=== PATIENT | male | born 1995 | race African-American/Black ===

== ENCOUNTER 2017-10-21 05:58 | Inpatient (IN) | payer OTHER ==
[~2017-10-21] VITALS: Ht 152.4 cm; Wt 45.4 kg
[2017-10-21 06:45] VITALS: BP 126/89
[2017-10-21 07:02] LABS: BASOPHILS % (AUTO) 1.3 % (0.0-2.0); EOSINOPHILS % (AUTO) 1.8 % (0.0-3.0); HEMATOCRIT 32.5 % (42.0-52.0); HEMOGLOBIN 10.8 G/DL (14.2-18.0); LYMPHOCYTES % (AUTO) 16.9 % (20.0-45.0); MEAN CORPUSCULAR VOLUME 84 FL (80-99); MONOCYTES % (AUTO) 3.7 % (1.0-10.0); NEUTROPHILS % (AUTO) 76.2 % (45.0-75.0); PLATELET COUNT 447 K/UL (150-450); RED BLOOD COUNT 3.86 M/UL (4.70-6.10); RED CELL DISTRIBUTION WIDTH 14.3 % (11.6-14.8); WHITE BLOOD COUNT 12.1 K/UL (4.8-10.8)
[2017-10-21 07:16] LABS: ANION GAP 6 mmol/L (5-15); BLOOD UREA NITROGEN 13 mg/dL (7-18); CALCIUM 8.5 MG/DL (8.5-10.1); CARBON DIOXIDE 28 MMOL/L (21-32); CHLORIDE 104 MMOL/L (98-107); POTASSIUM 3.5 MMOL/L (3.5-5.1); SODIUM 138 MMOL/L (136-145)
[2017-10-21 07:21] LABS: ALANINE AMINOTRANSFERASE 38 U/L (12-78); ALBUMIN 3.1 G/DL (3.4-5.0); ALBUMIN/GLOBULIN RATIO 0.6 (1.0-2.7); ALKALINE PHOSPHATASE 88 U/L (46-116); ASPARTATE AMINO TRANSFERASE 15 U/L (15-37); BILIRUBIN,TOTAL 0.6 MG/DL (0.2-1.0)
[2017-10-21 07:45] VITALS: BP 124/72
--- NOTE | 2017-10-21 07:59 | Diagnostic Imaging Report ---
EXAM: XR Left Foot Complete, 3 or More Views CLINICAL HISTORY: SWELL TECHNIQUE: Frontal, lateral and oblique views of the left foot. COMPARISON: No relevant prior studies available. FINDINGS: Severe generalized osteopenia. No radiographic evidence of acute fracture or dislocation. Arthritic changes in the midfoot. Significant soft tissue swelling. IMPRESSION: Severe generalized osteopenia. Generalized soft tissue swelling. No radiographic evidence of acute fracture. Arthritic changes in the left midfoot.
--- NOTE | 2017-10-21 08:57 | Emergency Room Report ---
History of Present Illness General Chief Complaint: Behavioral Complaint Source: Patient Present Illness HPI 22-year-old male presents ED for evaluation. Patient has multiple complaints. States that he can no longer take care of himself. Was living at home with his family and they are unable to care for him. Patient states he has severe scoliosis, has extensive psychiatric history. Patient also notes pain and swelling to his left foot. States he has had problems with this foot for many years now but states it is worse. Denies fevers or chills. Denies chest pain or shortness of breath. Denies hearing voices. Denies any suicidal homicidal ideation. No other aggravating relieving factors. Denies any other associated symptoms Allergies: Coded Allergies: LATEX (Verified Allergy, Unknown, 10/21/17) Patient History Past Medical History: psych hx, other - scolioisis Past Surgical History: none Pertinent Family History: none Social History: Denies: smoking, alcohol use, drug use Immunizations: UTD Reviewed Nursing Documentation: PMH: Agreed; PSxH: Agreed Nursing Documentation-PMH Hx Cancer: Yes - Bone Cancer Review of Systems All Other Systems: negative except mentioned in HPI Physical Exam Vital Signs Date Time Temp Pulse Resp B/P (MAP) Pulse Ox O2 Delivery O2 Flow Rate FiO2 10/21/17 05:52 98.1 120 18 128/89 98 Room Air 98.1 Sp02 EP Interpretation: reviewed, normal General Appearance: no apparent distress, alert, GCS 15, non-toxic, thin Head: normocephalic Eyes: bilateral eye normal inspection, bilateral eye PERRL ENT: normal ENT inspection Neck: normal inspection Respiratory: chest non-tender, lungs clear, normal breath sounds, speaking full sentences Cardiovascular #1: regular rate, rhythm, no edema Gastrointestinal: normal bowel sounds, non tender, soft, non-distended, no guarding, no rebound Rectal: deferred Genitourinary: no CVA tenderness, other Musculoskeletal: swelling - L foot swelling. erythema. open wound to L foot. no discharge Neurologic: alert, oriented x3, responsive, motor strength/tone normal, sensory intact, speech normal Psychiatric: no suicidal/homicidal ideation, no delusions, depressed affect, anxious Skin: normal inspection Lymphatic: normal inspection Medical Decision Making Diagnostic Impression: Primary Impression: Cellulitis of left foot Additional Impression: Gravely disabled ER Course Hospital Course 22-year-old male presents with generalized weakness, inability to care for self. Swelling and pain to the left foot Differential diagnoses include: cellulitis, abscess, osteomyelitis Clinical course Patient placed on stretcher. After initial history and physical I ordered labs , blood Cx, UA, IVFs. xrays of L foot labs reviewed - leukocytosis, Hb/Hct stable, no electrolyte abnormalities. Xray shows significant osteopenia. Marked soft tissue swelling. wound culture obtained antibiotics given. Patient does not have a support network to assist him with all of his comorbidities. Patient states there is increased swelling to the foot. While there is an extensive psychiatric history patient is not currently danger to himself or others. I believe patient would benefit from admission with IV antibiotics, psychiatric evaluation, possible placement upon discharge Case discussed with Dr Melchor and he agreed to accept the patient to his service for further care and support Diagnosis - cellulitis of L foot, gravely disable Patient admitted to floor in serious condition Labs Test 10/21/17 06:20 10/21/17 06:24 10/21/17 06:40 Urine Opiates Screen Negative (NEGATIVE) Urine Barbiturates Screen Negative (NEGATIVE) Phencyclidine (PCP) Screen Negative (NEGATIVE) Urine Amphetamines Screen Negative (NEGATIVE) Urine Benzodiazepines Screen Negative (NEGATIVE) Urine Cocaine Screen Negative (NEGATIVE) Urine Marijuana (THC) Screen Positive (NEGATIVE) White Blood Count 12.1 K/UL (4.8-10.8) Red Blood Count 3.86 M/UL (4.70-6.10) Hemoglobin 10.8 G/DL (14.2-18.0) Hematocrit 32.5 % (42.0-52.0) Mean Corpuscular Volume 84 FL (80-99) Mean Corpuscular Hemoglobin 28.1 PG (27.0-31.0) Mean Corpuscular Hemoglobin Concent 33.3 G/DL (32.0-36.0) Red Cell Distribution Width 14.3 % (11.6-14.8) Platelet Count 447 K/UL (150-450) Mean Platelet Volume 5.6 FL (6.5-10.1) Neutrophils (%) (Auto) 76.2 % (45.0-75.0) Lymphocytes (%) (Auto) 16.9 % (20.0-45.0) Monocytes (%) (Auto) 3.7 % (1.0-10.0) Eosinophils (%) (Auto) 1.8 % (0.0-3.0) Basophils (%) (Auto) 1.3 % (0.0-2.0) Sodium Level 138 MMOL/L (136-145) Potassium Level 3.5 MMOL/L (3.5-5.1) Chloride Level 104 MMOL/L (98-107) Carbon Dioxide Level 28 MMOL/L (21-32) Anion Gap 6 mmol/L (5-15) Blood Urea Nitrogen 13 mg/dL (7-18) Creatinine 1.0 MG/DL (0.55-1.30) Estimat Glomerular Filtration Rate > 60 mL/min (>60) Glucose Level 133 MG/DL (74-106) Calcium Level 8.5 MG/DL (8.5-10.1) Total Bilirubin 0.6 MG/DL (0.2-1.0) Aspartate Amino Transf (AST/SGOT) 15 U/L (15-37) Alanine Aminotransferase (ALT/SGPT) 38 U/L (12-78) Alkaline Phosphatase 88 U/L (46-116) Total Protein 8.3 G/DL (6.4-8.2) Albumin 3.1 G/DL (3.4-5.0) Globulin 5.2 g/dL Albumin/Globulin Ratio 0.6 (1.0-2.7) Salicylates Level 2.3 ug/mL (2.8-20) Acetaminophen Level < 2 MCG/ML (10-30) Serum Alcohol < 3 mg/dL Lactic Acid Level 1.50 mmol/L (0.4-2.0) Other X-Ray Diagnostic Results Other X-Ray Diagnostic Results : X-Ray ordered: L foot # of Views/Limited Vs Complete: 3 View Indication: Swelling EP Interpretation: Yes Interpretation: no dislocation, no fractures, other - severe arthritis Impression: Other - severe arthritis/soft tissue swelling Electronically Signed by: Electronically signed by Rodger Gan MD Last Vital Signs Date Time Temp Pulse Resp B/P (MAP) Pulse Ox O2 Delivery O2 Flow Rate FiO2 10/21/17 07:45 97.6 84 18 124/72 98 Room Air 97.6 Status: improved Disposition: ADMITTED INPATIENT Condition: Serious Referrals: SAM ZAYAS,REFERRING (PCP) Rodger Gan MD Oct 21, 2017 08:57
[2017-10-21 10:54] VITALS: BP 126/74
[2017-10-21] MEDS ORDERED: Nitroglycerin Subl 0.4mg tab SL PRN (11:28)
[2017-10-21] MEDS ORDERED: Miralax 17gm pkt ORAL PRN (11:29)
[2017-10-21] MEDS ORDERED: Albuterol/Ipratropium 3ml neb HHN PRN (11:30)
[2017-10-21] MEDS ORDERED: Morphine Sulfate 4mg/ml Inj IVP ONE (11:45)
[2017-10-21 12:00] VITALS: BP 139/98
[2017-10-21] MEDS: Cefepime HCl 2 GM in D5W 110 ML IV SCH ×2 (14:13→23:53)
[2017-10-21] MEDS: Vancomycin 500mg/D5W 110ml IVPB SCH ×2 (14:15)
[2017-10-21] MEDS: Morphine Sulfate 2mg/ml Inj IVP PRN (18:27)
[2017-10-21 20:00] VITALS: BP 110/78
[2017-10-21] MEDS: Heparin 5000 units/ml inj SUBQ SCH (20:27)
[2017-10-22] VITALS: BP 121/76
[2017-10-22] MEDS ORDERED: Vancomycin 1 GM in D5W 275 ML IV SCH (00:30)
[2017-10-22] MEDS: Vancomycin 500mg/D5W 110ml IVPB SCH ×4 (00:41→15:10)
[2017-10-22 04:34] VITALS: BP 129/80
[2017-10-22] MEDS: Morphine Sulfate 2mg/ml Inj IVP PRN ×2 (06:08→10:18)
[2017-10-22 08:05] VITALS: BP 139/102
[2017-10-22 09:43] LABS: EOSINOPHILS % (AUTO) 5.3 % (0.0-3.0); HEMATOCRIT 34.2 % (42.0-52.0); HEMOGLOBIN 11.4 G/DL (14.2-18.0); LYMPHOCYTES % (AUTO) 22.6 % (20.0-45.0); MEAN CORPUSCULAR VOLUME 83 FL (80-99); MONOCYTES % (AUTO) 9.7 % (1.0-10.0); NEUTROPHILS % (AUTO) 61.5 % (45.0-75.0); PLATELET COUNT 459 K/UL (150-450); RED BLOOD COUNT 4.11 M/UL (4.70-6.10); WHITE BLOOD COUNT 6.3 K/UL (4.8-10.8)
[2017-10-22] MEDS: Heparin 5000 units/ml inj SUBQ SCH ×2 (10:18→20:12)
[2017-10-22 10:39] LABS: ALANINE AMINOTRANSFERASE 30 U/L (12-78); ALBUMIN 2.6 G/DL (3.4-5.0); ALBUMIN/GLOBULIN RATIO 0.5 (1.0-2.7); ALKALINE PHOSPHATASE 69 U/L (46-116); ANION GAP 10 mmol/L (5-15); ASPARTATE AMINO TRANSFERASE 18 U/L (15-37); BILIRUBIN,TOTAL 0.5 MG/DL (0.2-1.0); BLOOD UREA NITROGEN 8 mg/dL (7-18); CALCIUM 8.5 MG/DL (8.5-10.1); CARBON DIOXIDE 26 MMOL/L (21-32); CHLORIDE 104 MMOL/L (98-107); CREATININE 0.8 MG/DL (0.55-1.30); SODIUM 140 MMOL/L (136-145)
[2017-10-22 12:00] VITALS: BP 129/61
[2017-10-22] MEDS: Cefepime HCl 2 GM in D5W 110 ML IV SCH (12:49)
--- NOTE | 2017-10-22 13:05 | Consultation ---
History of Present Illness General Date patient seen: Oct 22, 2017 Chief Complaint: Behavioral Complaint Present Illness HPI 22-year-old male with hx of Spina Bifida, psychosis, presented to ED for evaluation of increased weakness and inability to walk. Pt was living at home with his family and they are unable to care for him. Denies fevers or chills. Denies chest pain or shortness of breath. Denies hearing voices. Pt is admitted for progressive weakness and placement. Allergies: Coded Allergies: LATEX (Verified Allergy, Unknown, 10/21/17) Patient History Healthcare decision maker Resuscitation status Full Code Advanced Directive on File Past Medical/Surgical History Past Medical/Surgical History: (1) Scoliosis (2) Spina bifida Review of Systems All Other Systems: negative except mentioned in HPI Physical Exam General Appearance: WD/WN Lines, tubes and drains: peripheral HEENT: normocephalic, atraumatic Neck: non-tender, normal alignment Respiratory/Chest: chest wall non-tender, lungs clear Breasts: no masses Cardiovascular/Chest: normal peripheral pulses Abdomen: normal bowel sounds, non tender Genitourinary/Rectal: normal genital exam, normal rectal exam Extremities: normal range of motion Skin Exam: normal pigmentation Neurologic: low vision therapist II-XII grossly normal Last 24 Hour Vital Signs Date Time Temp Pulse Resp B/P (MAP) Pulse Ox O2 Delivery O2 Flow Rate FiO2 10/22/17 12:00 97.5 99 16 129/61 (83) 100 97.5 10/22/17 10:48 97.9 10/22/17 10:18 97.9 10/22/17 08:30 Room Air 10/22/17 08:05 97.7 92 16 139/102 (114) 100 97.7 10/22/17 04:34 97.9 92 20 129/80 (96) 98 97.9 10/22/17 00:00 98.4 97 20 121/76 (91) 99 98.4 10/21/17 21:00 Room Air 10/21/17 20:45 81 18 Room Air 10/21/17 20:00 98.2 105 19 110/78 (89) 100 98.2 10/21/17 18:27 98.0 10/21/17 13:50 98.0 10/21/17 13:20 98.0 Intake and Output 10/21/17 10/22/17 19:00 07:00 Intake Total 220 ml Balance 220 ml Intake IV Total 220 ml # Voids 1 Laboratory Tests Test 10/22/17 09:20 White Blood Count 6.3 K/UL (4.8-10.8) Red Blood Count 4.11 M/UL (4.70-6.10) L Hemoglobin 11.4 G/DL (14.2-18.0) L Hematocrit 34.2 % (42.0-52.0) L Mean Corpuscular Volume 83 FL (80-99) Mean Corpuscular Hemoglobin 27.8 PG (27.0-31.0) Mean Corpuscular Hemoglobin Concent 33.4 G/DL (32.0-36.0) Red Cell Distribution Width 14.0 % (11.6-14.8) Platelet Count 459 K/UL (150-450) H Mean Platelet Volume 5.7 FL (6.5-10.1) L Neutrophils (%) (Auto) 61.5 % (45.0-75.0) Lymphocytes (%) (Auto) 22.6 % (20.0-45.0) Monocytes (%) (Auto) 9.7 % (1.0-10.0) Eosinophils (%) (Auto) 5.3 % (0.0-3.0) H Basophils (%) (Auto) 1.0 % (0.0-2.0) Sodium Level 140 MMOL/L (136-145) Potassium Level 4.0 MMOL/L (3.5-5.1) Chloride Level 104 MMOL/L (98-107) Carbon Dioxide Level 26 MMOL/L (21-32) Anion Gap 10 mmol/L (5-15) Blood Urea Nitrogen 8 mg/dL (7-18) Creatinine 0.8 MG/DL (0.55-1.30) Estimat Glomerular Filtration Rate > 60 mL/min (>60) Glucose Level 103 MG/DL (74-106) Calcium Level 8.5 MG/DL (8.5-10.1) Total Bilirubin 0.5 MG/DL (0.2-1.0) Aspartate Amino Transf (AST/SGOT) 18 U/L (15-37) Alanine Aminotransferase (ALT/SGPT) 30 U/L (12-78) Alkaline Phosphatase 69 U/L (46-116) Total Protein 7.4 G/DL (6.4-8.2) Albumin 2.6 G/DL (3.4-5.0) L Globulin 4.8 g/dL Albumin/Globulin Ratio 0.5 (1.0-2.7) L Height (Feet): 5 Weight (Pounds): 100 Medications Current Medications Medications (Trade) Dose Ordered Sig/Lefty Route PRN Reason Start Time Stop Time Status Last Admin Dose Admin Acetaminophen (Tylenol) 650 mg Q4H PRN ORAL fever 10/21/17 11:29 11/20/17 11:28 Albuterol/ Ipratropium (Albuterol/ Ipratropium) 3 ml Q4H PRN HHN Shortness of Breath 10/21/17 11:30 10/26/17 11:29 Cefepime HCl 2 gm/ Dextrose 110 ml @ 220 mls/hr Q12H IV 10/21/17 12:30 10/28/17 12:29 10/22/17 12:49 Dextrose (Dextrose 50%) 25 ml STAT PRN IV Hypoglycemia 10/21/17 11:28 11/20/17 11:27 Dextrose (Dextrose 50%) 50 ml STAT PRN IV Hypoglycemia 10/21/17 11:28 11/20/17 11:27 Heparin Sodium (Porcine) (Heparin 5000 units/ml) 5,000 units EVERY 12 HOURS SUBQ 10/21/17 21:00 11/20/17 20:59 10/22/17 10:18 Morphine Sulfate (Morphine Sulfate) 2 mg Q4H PRN IVP Moderate Pain (Pain Scale 4-6) 10/21/17 11:33 10/28/17 11:32 10/22/17 10:18 Nitroglycerin (Ntg) 0.4 mg Q5MIN X 3 DOSES PRN SL Prn Chest Pain 10/21/17 11:28 11/20/17 11:27 Ondansetron HCl (Zofran) 4 mg Q6H PRN IVP Nausea & Vomiting 10/21/17 11:29 11/20/17 11:28 Polyethylene Glycol (Miralax) 17 gm DAILYPRN PRN ORAL Constipation 10/21/17 11:29 11/20/17 11:28 Temazepam (Restoril) 15 mg HSPRN PRN ORAL Insomnia 10/21/17 21:00 10/28/17 20:59 Vancomycin HCl (Vanco rx to dose) 1 ea DAILY PRN MISC PER RX 10/21/17 11:45 11/20/17 11:44 Vancomycin HCl 500 mg/Dextrose 110 ml @ 110 mls/hr Q12H IVPB 10/21/17 13:00 10/26/17 12:59 10/22/17 00:41 Assessment/Plan Problem List: (1) Cellulitis of left foot ICD Codes: L03.116 - Cellulitis of left lower limb SNOMED: 329433428 (2) Inability to ambulate due to ankle or foot ICD Codes: R26.2 - Difficulty in walking, not elsewhere classified SNOMED: 988969862, 444064772 (3) Scoliosis ICD Codes: M41.9 - Scoliosis, unspecified SNOMED: 921543516 (4) Spina bifida ICD Codes: Q05.9 - Spina bifida, unspecified SNOMED: 59620504 Assessment/Plan pt/ot iv abx for cellulitis social service consult check electrolytes will need placement Ricky Sanz MD Oct 22, 2017 13:04
--- NOTE | 2017-10-22 13:16 | Consultation ---
History of Present Illness General Date patient seen: Oct 22, 2017 Chief Complaint: Behavioral Complaint Present Illness HPI 22 y/o M with hx of Spina Bifida, severe scoliosis, psychosis presented to ED on 10/21 with increasing weakness and inability to walk; family unable to care of him at home. Also noted pain and swelling on L foot Denies f/c, CP, SOB Allergies: Coded Allergies: LATEX (Verified Allergy, Unknown, 10/21/17) Patient History Healthcare decision maker Resuscitation status Full Code Advanced Directive on File Patient History Narrative Pmhx: as above Shx: Denies: smoking, alcohol use, drug use Fhx: non contributory Review of Systems All Other Systems: negative except mentioned in HPI Physical Exam Physical Exam Narrative General Appearance: WD/WN Lines, tubes and drains: peripheral HEENT: normocephalic, atraumatic Neck: non-tender, normal alignment Respiratory/Chest: chest wall non-tender, lungs clear Cardiovascular/Chest: normal peripheral pulses Abdomen: normal bowel sounds, non tender Extremities: normal range of motion Skin Exam: L foot with mild erythema, swelling and TTP and superficial uler on plantar aspect of foot, no driange, no obviously infected . Last 24 Hour Vital Signs Date Time Temp Pulse Resp B/P (MAP) Pulse Ox O2 Delivery O2 Flow Rate FiO2 10/22/17 12:00 97.5 99 16 129/61 (83) 100 97.5 10/22/17 10:48 97.9 10/22/17 10:18 97.9 10/22/17 08:30 Room Air 10/22/17 08:05 97.7 92 16 139/102 (114) 100 97.7 10/22/17 04:34 97.9 92 20 129/80 (96) 98 97.9 10/22/17 00:00 98.4 97 20 121/76 (91) 99 98.4 10/21/17 21:00 Room Air 10/21/17 20:45 81 18 Room Air 10/21/17 20:00 98.2 105 19 110/78 (89) 100 98.2 10/21/17 18:27 98.0 10/21/17 13:50 98.0 10/21/17 13:20 98.0 Intake and Output 10/21/17 10/22/17 19:00 07:00 Intake Total 220 ml Balance 220 ml Intake IV Total 220 ml # Voids 1 Laboratory Tests Test 10/22/17 09:20 White Blood Count 6.3 K/UL (4.8-10.8) Red Blood Count 4.11 M/UL (4.70-6.10) L Hemoglobin 11.4 G/DL (14.2-18.0) L Hematocrit 34.2 % (42.0-52.0) L Mean Corpuscular Volume 83 FL (80-99) Mean Corpuscular Hemoglobin 27.8 PG (27.0-31.0) Mean Corpuscular Hemoglobin Concent 33.4 G/DL (32.0-36.0) Red Cell Distribution Width 14.0 % (11.6-14.8) Platelet Count 459 K/UL (150-450) H Mean Platelet Volume 5.7 FL (6.5-10.1) L Neutrophils (%) (Auto) 61.5 % (45.0-75.0) Lymphocytes (%) (Auto) 22.6 % (20.0-45.0) Monocytes (%) (Auto) 9.7 % (1.0-10.0) Eosinophils (%) (Auto) 5.3 % (0.0-3.0) H Basophils (%) (Auto) 1.0 % (0.0-2.0) Sodium Level 140 MMOL/L (136-145) Potassium Level 4.0 MMOL/L (3.5-5.1) Chloride Level 104 MMOL/L (98-107) Carbon Dioxide Level 26 MMOL/L (21-32) Anion Gap 10 mmol/L (5-15) Blood Urea Nitrogen 8 mg/dL (7-18) Creatinine 0.8 MG/DL (0.55-1.30) Estimat Glomerular Filtration Rate > 60 mL/min (>60) Glucose Level 103 MG/DL (74-106) Calcium Level 8.5 MG/DL (8.5-10.1) Total Bilirubin 0.5 MG/DL (0.2-1.0) Aspartate Amino Transf (AST/SGOT) 18 U/L (15-37) Alanine Aminotransferase (ALT/SGPT) 30 U/L (12-78) Alkaline Phosphatase 69 U/L (46-116) Total Protein 7.4 G/DL (6.4-8.2) Albumin 2.6 G/DL (3.4-5.0) L Globulin 4.8 g/dL Albumin/Globulin Ratio 0.5 (1.0-2.7) L Height (Feet): 5 Weight (Pounds): 100 Medications Current Medications Medications (Trade) Dose Ordered Sig/Lefty Route PRN Reason Start Time Stop Time Status Last Admin Dose Admin Acetaminophen (Tylenol) 650 mg Q4H PRN ORAL fever 10/21/17 11:29 11/20/17 11:28 Albuterol/ Ipratropium (Albuterol/ Ipratropium) 3 ml Q4H PRN HHN Shortness of Breath 10/21/17 11:30 10/26/17 11:29 Cefepime HCl 2 gm/ Dextrose 110 ml @ 220 mls/hr Q12H IV 10/21/17 12:30 10/28/17 12:29 10/22/17 12:49 Dextrose (Dextrose 50%) 25 ml STAT PRN IV Hypoglycemia 10/21/17 11:28 11/20/17 11:27 Dextrose (Dextrose 50%) 50 ml STAT PRN IV Hypoglycemia 10/21/17 11:28 11/20/17 11:27 Heparin Sodium (Porcine) (Heparin 5000 units/ml) 5,000 units EVERY 12 HOURS SUBQ 10/21/17 21:00 11/20/17 20:59 10/22/17 10:18 Morphine Sulfate (Morphine Sulfate) 2 mg Q4H PRN IVP Moderate Pain (Pain Scale 4-6) 10/21/17 11:33 10/28/17 11:32 10/22/17 10:18 Nitroglycerin (Ntg) 0.4 mg Q5MIN X 3 DOSES PRN SL Prn Chest Pain 10/21/17 11:28 11/20/17 11:27 Ondansetron HCl (Zofran) 4 mg Q6H PRN IVP Nausea & Vomiting 10/21/17 11:29 11/20/17 11:28 Polyethylene Glycol (Miralax) 17 gm DAILYPRN PRN ORAL Constipation 10/21/17 11:29 11/20/17 11:28 Temazepam (Restoril) 15 mg HSPRN PRN ORAL Insomnia 10/21/17 21:00 10/28/17 20:59 Vancomycin HCl (Vanco rx to dose) 1 ea DAILY PRN MISC PER RX 10/21/17 11:45 11/20/17 11:44 Vancomycin HCl 500 mg/Dextrose 110 ml @ 110 mls/hr Q12H IVPB 10/21/17 13:00 10/26/17 12:59 10/22/17 00:41 Assessment/Plan Assessment/Plan Abx: /IV Vanco 10/21- Cefepime 10/21- Assessment: L foot cellulitis and superficial ulcer (appears non infected) -wound cx S.aureus Afebrile Mild leukocytosis, resolved Spina Bifida severe scoliosis psychosis Plan: -Continue IV Vancomcyin pending S.aureus sensi and switch Cefepime to Ancef for cellulitis/strep coverage -f/u cx -Monitor CBC/CMP, temperatures -wound care per hosp protocol -PT/OT Thank you for this consultation. Will continue to follow along with you. Discussed with Alice Amaya M.D. Oct 22, 2017 13:16
[2017-10-22 16:00] VITALS: BP 123/77
--- NOTE | 2017-10-22 16:15 | History and Physical Report ---
DATE OF ADMISSION: 10/22/2017 TIME: 11 a.m. CONSULTANTS: 1. Daniel Helms M.D. 2. Ricky Sanz M.D. 3. Damon Garcia D.P.M. 4. Soto Chavez M.D. CHIEF COMPLAINT: Left foot cellulitis, scoliosis, and testicular pain. BRIEF HISTORY: This is a 22-year-old male, who lives at home with family with history of severe scoliosis developing a left foot cellulitis and not eating well. Currently, transferred to [facility], diagnosed with the above, and admitted to medical floor for further treatment. Currently, calm in bed. No complaint. No chest pain. No shortness of breath. No nausea, vomiting, or diarrhea. PAST MEDICAL HISTORY: Includes fibromyalgia, scoliosis, hypertension, and testicular pain. PAST SURGICAL HISTORY: Left leg at 13 years old. MEDICATIONS: Restoril, temazepam, vancomycin, cefepime, morphine, albuterol, Zofran, Tylenol, and nitroglycerin. ALLERGIES: Latex and the patient claims penicillin. SOCIAL HISTORY: Positive smoke. Positive alcohol. No intravenous drug abuse. FAMILY HISTORY: Noncontributory. PHYSICAL EXAMINATION: GENERAL: Calm in bed, oriented x3, in no acute distress. VITAL SIGNS: Temperature is 97 degrees, pulse 92, respirations 16, and blood pressure 129/80 then 139/102. CARDIOVASCULAR: No murmurs. LUNGS: Distant and clear. ABDOMEN: Bowel sounds positive. Nontender. Nondistended. EXTREMITIES: No cyanosis, clubbing, or edema. Left foot base slightly disheveled and whitish scabbed lesion. Also, severe scoliosis deformity noted with the leg and arm deformity as well. NEUROLOGIC: The patient moves all extremities, but slightly weak. LABORATORY AND DIAGNOSTIC DATA: Labs, at this time, show white count initially was 12, now at 6.3, H and H are 11 and 34, and platelets 459,000. BMP shows albumin 2.6, otherwise BMP is normal. Urine toxicology is positive for marijuana. ASSESSMENT: 1. Cellulitis of the left foot. 2. Failure to thrive. 3. Anemia. 4. Scoliosis. 5. Fibromyalgia. 6. Hypertension. 7. Testicular pain. PLAN: 1. Wound care. 2. Antibiotics per Infectious Disease. 3. OT, PT, and dietary evaluation. 4. CBC and BMP in the morning. 5. Pain control. 6. Blood pressure control. 7. Resume home medications. 8. We will continue to follow this patient. Rigo Melchor D.O. DR: NIMESH JOB#: [id number] CC:
[2017-10-22 20:00] VITALS: BP 115/81
[2017-10-22] MEDS: ceFAZolin sod 1 GM in D5W 110 ML IVPB SCH (21:30)
[2017-10-23] VITALS: BP 136/90
--- NOTE | 2017-10-23 01:30 | Consultation ---
DATE OF CONSULTATION: 10/22/2017 UROLOGY CONSULTATION CONSULTING PHYSICIAN: Soto Chavez M.D. ATTENDING/CONSULTING PHYSICIAN: Rigo Melchor D.O. CHIEF COMPLAINT/HISTORY OF PRESENT ILLNESS: I was asked by Dr. Melchor to evaluate this unfortunate 22-year-old gentleman regarding history of chronic intermittent scrotal pain which he has felt for years. Briefly, the patient came to the hospital with left foot cellulitis. He has a history of severe scoliosis and family was unable to care for him at home. During the course of this hospitalization, he mentioned a chronic testicular and scrotal pain that he has had for years by his report. There is no preceding history of trauma or infection. The pain comes and goes intermittently. PAST MEDICAL HISTORY: 1. Scoliosis. 2. Fibromyalgia. 3. Hypertension. 4. Orchialgia. PAST SURGICAL HISTORY: Left leg surgery at age 13. MEDICATIONS: Please see the chart for current medications administration details. ALLERGIES: Include latex and penicillin. SOCIAL HISTORY: Notable for tobacco and alcohol use. The patient does not use IV drugs. FAMILY HISTORY: Noncontributory. REVIEW OF SYSTEMS: A 12-system review of systems essentially unremarkable outside of what is described above. PHYSICAL EXAMINATION: GENERAL: The patient is a young gentleman, awake, alert, oriented x4, pleasant, in no obvious distress. HEENT: NC/AT. EOMI. NECK: Supple, but full range of motion. Oropharynx clear. CHEST: Within normal limits. ABDOMEN: Soft, nontender, and nondistended. EXTREMITIES: Warm and well perfused. No cyanosis, clubbing or edema is noted. The left foot is disabled and there is some evidence of cellulitis. BACK: Scoliosis is noted with some deformity. NEUROLOGIC: Grossly nonfocal. GENITOURINARY: Reveals a normal male phallus circumcised. No discharge lesions or curvature. There are bilateral descended testes and cord structures. No masses, tenderness to palpation or other abnormality appreciable. LABORATORY AND DIAGNOSTIC DATA: White blood cell count 6.3 down from 12.1 on admission, hematocrit 34.2, and platelets 459. Sodium 140, potassium 4.0, chloride 104, bicarbonate 26, BUN 8, creatinine 0.8, and glucose 103. LFTs within normal limits. Urine toxicology notable for marijuana. Diagnostic imaging, foot x-ray with osteopenia and soft-tissue swelling. There is no radiographic evidence of fracture. There are arthritic changes in the left mid foot. ASSESSMENT AND PLAN: In summary, the patient is a young man with a history of scoliosis and left leg deformity presenting with cellulitis of the left lower extremity. He has a history of chronic orchialgia of uncertain etiology. Physical exam reveals no abnormalities within the scrotum and no tenderness on exam. Laboratory data is notable for a slightly elevated white blood cell count, which is improved on antibiotics here in the hospital. There is no relevant diagnostic imaging. It appears that the patient may have a little bit of intermittent epididymitis. There is no scrotal or testicular mass, hernia, hydrocele or abscess noted. I reassured him regarding his findings and he was happy to hear that. Thank you for allowing me to participate in the care of this nice young man. Please do not hesitate to contact me with any questions that you may further have regarding his care. I will see him with you as needed. Soto Chavez M.D. DR: OMID JOB#: [id number] CC:
[2017-10-23] MEDS: Vancomycin 500mg/D5W 110ml IVPB SCH ×2 (02:27)
[2017-10-23 04:00] VITALS: BP 124/89
[2017-10-23] MEDS: ceFAZolin sod 1 GM in D5W 110 ML IVPB SCH ×2 (06:31→14:00)
[2017-10-23 08:00] VITALS: BP 122/85
[2017-10-23 09:22] LABS: BASOPHILS % (AUTO) 1.5 % (0.0-2.0); EOSINOPHILS % (AUTO) 2.4 % (0.0-3.0); HEMOGLOBIN 11.6 G/DL (14.2-18.0); LYMPHOCYTES % (AUTO) 12.2 % (20.0-45.0); MEAN CORPUSCULAR VOLUME 83 FL (80-99); MONOCYTES % (AUTO) 7.2 % (1.0-10.0); NEUTROPHILS % (AUTO) 76.6 % (45.0-75.0); PLATELET COUNT 447 K/UL (150-450); RED BLOOD COUNT 4.23 M/UL (4.70-6.10); RED CELL DISTRIBUTION WIDTH 14.1 % (11.6-14.8); WHITE BLOOD COUNT 9.1 K/UL (4.8-10.8)
[2017-10-23] MEDS: Heparin 5000 units/ml inj SUBQ SCH (09:33)
[2017-10-23 09:40] LABS: ANION GAP 7 mmol/L (5-15); BLOOD UREA NITROGEN 7 mg/dL (7-18); CARBON DIOXIDE 28 MMOL/L (21-32); CHLORIDE 103 MMOL/L (98-107); CREATININE 0.6 MG/DL (0.55-1.30); POTASSIUM 3.8 MMOL/L (3.5-5.1); SODIUM 138 MMOL/L (136-145)
[2017-10-23 09:45] LABS: CALCIUM 8.5 MG/DL (8.5-10.1)
[2017-10-23 12:00] VITALS: BP 113/81
--- NOTE | 2017-10-23 12:37 | Pulmonology Progress Note ---
Assessment/Plan Problems: (1) Cellulitis of left foot (2) Inability to ambulate due to ankle or foot (3) Scoliosis (4) Spina bifida Assessment/Plan all reviewed social service note appreciated dc planning symptomatic treatment dvt prophylaxis Subjective ROS Limited/Unobtainable: No Constitutional: Reports: no symptoms HEENT: Repors: no symptoms Respiratory: Reports: no symptoms Allergies: Coded Allergies: LATEX (Verified Allergy, Unknown, 10/21/17) PENICILLINS (Verified Allergy, Unknown, seizures, 10/22/17) tolerates cephalosporins Objective Last 24 Hour Vital Signs Date Time Temp Pulse Resp B/P (MAP) Pulse Ox O2 Delivery O2 Flow Rate FiO2 10/23/17 09:53 77 18 Room Air 10/23/17 08:20 Room Air 10/23/17 08:00 98.4 102 16 122/85 (97) 98 98.4 10/23/17 04:00 98.2 97 18 124/89 (101) 100 98.2 10/23/17 00:00 98.2 94 19 136/90 (105) 97 98.2 10/22/17 21:10 98.1 10/22/17 21:00 Room Air 10/22/17 20:11 98.1 10/22/17 20:00 97.7 72 18 115/81 (92) 97 97.7 10/22/17 16:00 98.1 106 18 123/77 (92) 99 98.1 Intake and Output 10/22/17 10/23/17 19:00 07:00 Intake Total 260 ml Output Total 300 ml Balance 260 ml -300 ml Intake Oral 260 ml Output Urine Total 300 ml # Voids 1 # Bowel Movements 2 General Appearance: cachetic HEENT: normocephalic, atraumatic Respiratory/Chest: chest wall non-tender, lungs clear Cardiovascular: normal peripheral pulses, normal rate Abdomen: normal bowel sounds, soft, non tender Extremities: no cyanosis Skin: no lesions 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 Microbiology Date/Time Source Procedure Growth Status 10/21/17 06:55 Blood Blood Culture - Preliminary NO GROWTH AFTER 24 HOURS Resulted 10/21/17 06:40 Blood Blood Culture - Preliminary NO GROWTH AFTER 24 HOURS Resulted 10/21/17 06:55 Foot Left Gram Stain - Final Resulted 10/21/17 06:55 Wound Culture - Preliminary Staphylococcus Aureus Resulted Laboratory Tests 10/23/17 08:40: White Blood Count 9.1, Red Blood Count 4.23L, Hemoglobin 11.6L, Hematocrit 35.0L , Mean Corpuscular Volume 83, Mean Corpuscular Hemoglobin 27.5, Mean Corpuscular Hemoglobin Concent 33.1, Red Cell Distribution Width 14.1, Platelet Count 447, Mean Platelet Volume 5.6L, Neutrophils (%) (Auto) 76.6H, Lymphocytes (%) (Auto) 12.2L, Monocytes (%) (Auto) 7.2, Eosinophils (%) (Auto) 2.4, Basophils (%) (Auto) 1.5, Sodium Level 138, Potassium Level 3.8, Chloride Level 103, Carbon Dioxide Level 28, Anion Gap 7, Blood Urea Nitrogen 7, Creatinine 0.6 , Estimat Glomerular Filtration Rate > 60, Glucose Level 97, Calcium Level 8.5 10/23/17 11:55: Vancomycin Level Trough [Pending] Current Medications Medications (Trade) Dose Ordered Sig/Lefty Route PRN Reason Start Time Stop Time Status Last Admin Dose Admin Acetaminophen (Tylenol) 650 mg Q4H PRN ORAL for fever and Pain Scale (3-5) 10/23/17 11:29 11/20/17 11:28 Albuterol/ Ipratropium (Albuterol/ Ipratropium) 3 ml Q4H PRN HHN Shortness of Breath 10/21/17 11:30 10/26/17 11:29 Cefazolin Sodium 1 gm/Dextrose 110 ml @ 220 mls/hr Q8HR IVPB 10/22/17 22:00 10/29/17 21:59 10/23/17 06:31 Dextrose (Dextrose 50%) 25 ml STAT PRN IV Hypoglycemia 10/21/17 11:28 11/20/17 11:27 Dextrose (Dextrose 50%) 50 ml STAT PRN IV Hypoglycemia 10/21/17 11:28 11/20/17 11:27 Heparin Sodium (Porcine) (Heparin 5000 units/ml) 5,000 units EVERY 12 HOURS SUBQ 10/21/17 21:00 11/20/17 20:59 10/23/17 09:33 Morphine Sulfate (Morphine Sulfate) 2 mg Q4H PRN IVP Moderate Pain (Pain Scale 4-6) 10/21/17 11:33 10/28/17 11:32 10/22/17 10:18 Nitroglycerin (Ntg) 0.4 mg Q5MIN X 3 DOSES PRN SL Prn Chest Pain 10/21/17 11:28 11/20/17 11:27 Ondansetron HCl (Zofran) 4 mg Q6H PRN IVP Nausea & Vomiting 10/21/17 11:29 11/20/17 11:28 10/23/17 09:36 Polyethylene Glycol (Miralax) 17 gm DAILYPRN PRN ORAL Constipation 10/21/17 11:29 11/20/17 11:28 Temazepam (Restoril) 15 mg HSPRN PRN ORAL Insomnia 10/21/17 21:00 10/28/17 20:59 Vancomycin HCl (Vanco rx to dose) 1 ea DAILY PRN MISC PER RX 10/21/17 11:45 11/20/17 11:44 Vancomycin HCl 500 mg/Dextrose 110 ml @ 110 mls/hr Q12H IVPB 10/21/17 13:00 10/26/17 12:59 10/23/17 02:27 Ricky Sanz MD Oct 23, 2017 12:37
--- NOTE | 2017-10-23 13:05 | Infectious Diseases Prog Note ---
Assessment/Plan Assessment/Plan Abx: /IV Vanco 10/21- Cefepime 10/21- Assessment: L foot cellulitis and superficial ulcer (appears non infected) -wound cx MSSA Afebrile Mild leukocytosis, resolved Spina Bifida severe scoliosis psychosis Plan: -D/c IV Vancomcyin #3 -Continue Ancef abx d#3/ for cellulitis -10/22 SP Cefepime #2 -f/u cx -Monitor CBC/CMP, temperatures -wound care per hosp protocol -PT/OT Thank you for this consultation. Will continue to follow along with you. Discussed with RN Subjective Allergies: Coded Allergies: LATEX (Verified Allergy, Unknown, 10/21/17) PENICILLINS (Verified Allergy, Unknown, seizures, 10/22/17) tolerates cephalosporins Subjective afebrile\ no leukocytosis Bcx NTD Objective Vital Signs Last 24 Hour Vital Signs Date Time Temp Pulse Resp B/P (MAP) Pulse Ox O2 Delivery O2 Flow Rate FiO2 10/23/17 12:00 98.0 99 16 113/81 (92) 100 98.0 10/23/17 09:53 77 18 Room Air 10/23/17 08:20 Room Air 10/23/17 08:00 98.4 102 16 122/85 (97) 98 98.4 10/23/17 04:00 98.2 97 18 124/89 (101) 100 98.2 10/23/17 00:00 98.2 94 19 136/90 (105) 97 98.2 10/22/17 21:10 98.1 10/22/17 21:00 Room Air 10/22/17 20:11 98.1 10/22/17 20:00 97.7 72 18 115/81 (92) 97 97.7 10/22/17 16:00 98.1 106 18 123/77 (92) 99 98.1 Height (Feet): 5 Weight (Pounds): 100 Objective General Appearance: WD/WN Lines, tubes and drains: peripheral HEENT: normocephalic, atraumatic Neck: non-tender, normal alignment Respiratory/Chest: chest wall non-tender, lungs clear Cardiovascular/Chest: normal peripheral pulses Abdomen: normal bowel sounds, non tender Extremities: normal range of motion Skin Exam: L foot with mild erythema, swelling and TTP and superficial uler on plantar aspect of foot, no driange, no obviously infected Microbiology Date/Time Source Procedure Growth Status 10/21/17 06:55 Blood Blood Culture - Preliminary NO GROWTH AFTER 24 HOURS Resulted 10/21/17 06:40 Blood Blood Culture - Preliminary NO GROWTH AFTER 24 HOURS Resulted 10/21/17 06:55 Foot Left Gram Stain - Final Resulted 10/21/17 06:55 Wound Culture - Preliminary Staphylococcus Aureus Resulted Laboratory Tests Test 10/23/17 08:40 10/23/17 11:55 White Blood Count 9.1 K/UL (4.8-10.8) Red Blood Count 4.23 M/UL (4.70-6.10) L Hemoglobin 11.6 G/DL (14.2-18.0) L Hematocrit 35.0 % (42.0-52.0) L Mean Corpuscular Volume 83 FL (80-99) Mean Corpuscular Hemoglobin 27.5 PG (27.0-31.0) Mean Corpuscular Hemoglobin Concent 33.1 G/DL (32.0-36.0) Red Cell Distribution Width 14.1 % (11.6-14.8) Platelet Count 447 K/UL (150-450) Mean Platelet Volume 5.6 FL (6.5-10.1) L Neutrophils (%) (Auto) 76.6 % (45.0-75.0) H Lymphocytes (%) (Auto) 12.2 % (20.0-45.0) L Monocytes (%) (Auto) 7.2 % (1.0-10.0) Eosinophils (%) (Auto) 2.4 % (0.0-3.0) Basophils (%) (Auto) 1.5 % (0.0-2.0) Sodium Level 138 MMOL/L (136-145) Potassium Level 3.8 MMOL/L (3.5-5.1) Chloride Level 103 MMOL/L (98-107) Carbon Dioxide Level 28 MMOL/L (21-32) Anion Gap 7 mmol/L (5-15) Blood Urea Nitrogen 7 mg/dL (7-18) Creatinine 0.6 MG/DL (0.55-1.30) Estimat Glomerular Filtration Rate > 60 mL/min (>60) Glucose Level 97 MG/DL (74-106) Calcium Level 8.5 MG/DL (8.5-10.1) Vancomycin Level Trough 6.4 ug/mL (5.0-12.0) Current Medications Medications (Trade) Dose Ordered Sig/Lefty Route PRN Reason Start Time Stop Time Status Last Admin Dose Admin Acetaminophen (Tylenol) 650 mg Q4H PRN ORAL for fever and Pain Scale (3-5) 10/23/17 11:29 11/20/17 11:28 Albuterol/ Ipratropium (Albuterol/ Ipratropium) 3 ml Q4H PRN HHN Shortness of Breath 10/21/17 11:30 10/26/17 11:29 Cefazolin Sodium 1 gm/Dextrose 110 ml @ 220 mls/hr Q8HR IVPB 10/22/17 22:00 10/29/17 21:59 10/23/17 06:31 Dextrose (Dextrose 50%) 25 ml STAT PRN IV Hypoglycemia 10/21/17 11:28 11/20/17 11:27 Dextrose (Dextrose 50%) 50 ml STAT PRN IV Hypoglycemia 10/21/17 11:28 11/20/17 11:27 Heparin Sodium (Porcine) (Heparin 5000 units/ml) 5,000 units EVERY 12 HOURS SUBQ 10/21/17 21:00 11/20/17 20:59 10/23/17 09:33 Morphine Sulfate (Morphine Sulfate) 2 mg Q4H PRN IVP Moderate Pain (Pain Scale 4-6) 10/21/17 11:33 10/28/17 11:32 10/22/17 10:18 Nitroglycerin (Ntg) 0.4 mg Q5MIN X 3 DOSES PRN SL Prn Chest Pain 10/21/17 11:28 11/20/17 11:27 Ondansetron HCl (Zofran) 4 mg Q6H PRN IVP Nausea & Vomiting 10/21/17 11:29 11/20/17 11:28 10/23/17 09:36 Polyethylene Glycol (Miralax) 17 gm DAILYPRN PRN ORAL Constipation 10/21/17 11:29 11/20/17 11:28 Temazepam (Restoril) 15 mg HSPRN PRN ORAL Insomnia 10/21/17 21:00 10/28/17 20:59 Vancomycin HCl (Vanco rx to dose) 1 ea DAILY PRN MISC PER RX 10/21/17 11:45 11/20/17 11:44 Vancomycin HCl 500 mg/Dextrose 110 ml @ 110 mls/hr Q12H IVPB 10/21/17 13:00 10/26/17 12:59 10/23/17 02:27 Alice Canchola M.D. Oct 23, 2017 13:05
--- NOTE | 2017-10-23 14:54 | General Progress Note ---
Assessment/Plan Problem List: (1) Cellulitis ICD Codes: L03.90 - Cellulitis, unspecified SNOMED: 378492890 (2) Gravely disabled SNOMED: 333100687 (3) Scoliosis ICD Codes: M41.9 - Scoliosis, unspecified SNOMED: 487254185 (4) Cellulitis of left foot ICD Codes: L03.116 - Cellulitis of left lower limb SNOMED: 207508913 (5) Inability to ambulate due to ankle or foot ICD Codes: R26.2 - Difficulty in walking, not elsewhere classified SNOMED: 083450888, 704034175 Status: stable, progressing Assessment/Plan ot pt diet wond care abx cbc bmp am dc plan snf Subjective Constitutional: Reports: weakness Allergies: Coded Allergies: LATEX (Verified Allergy, Unknown, 10/21/17) PENICILLINS (Verified Allergy, Unknown, seizures, 10/22/17) tolerates cephalosporins All Systems: reviewed and negative except above Subjective sl anxiou sin bed Objective Last 24 Hour Vital Signs Date Time Temp Pulse Resp B/P (MAP) Pulse Ox O2 Delivery O2 Flow Rate FiO2 10/23/17 12:00 98.0 99 16 113/81 (92) 100 98.0 10/23/17 09:53 77 18 Room Air 10/23/17 08:20 Room Air 10/23/17 08:00 98.4 102 16 122/85 (97) 98 98.4 10/23/17 04:00 98.2 97 18 124/89 (101) 100 98.2 10/23/17 00:00 98.2 94 19 136/90 (105) 97 98.2 10/22/17 21:10 98.1 10/22/17 21:00 Room Air 10/22/17 20:11 98.1 10/22/17 20:00 97.7 72 18 115/81 (92) 97 97.7 10/22/17 16:00 98.1 106 18 123/77 (92) 99 98.1 Intake and Output 10/22/17 10/23/17 19:00 07:00 Intake Total 260 ml Output Total 300 ml Balance 260 ml -300 ml Intake Oral 260 ml Output Urine Total 300 ml # Voids 1 # Bowel Movements 2 Laboratory Tests 10/23/17 08:40: White Blood Count 9.1, Red Blood Count 4.23L, Hemoglobin 11.6L, Hematocrit 35.0L , Mean Corpuscular Volume 83, Mean Corpuscular Hemoglobin 27.5, Mean Corpuscular Hemoglobin Concent 33.1, Red Cell Distribution Width 14.1, Platelet Count 447, Mean Platelet Volume 5.6L, Neutrophils (%) (Auto) 76.6H, Lymphocytes (%) (Auto) 12.2L, Monocytes (%) (Auto) 7.2, Eosinophils (%) (Auto) 2.4, Basophils (%) (Auto) 1.5, Sodium Level 138, Potassium Level 3.8, Chloride Level 103, Carbon Dioxide Level 28, Anion Gap 7, Blood Urea Nitrogen 7, Creatinine 0.6 , Estimat Glomerular Filtration Rate > 60, Glucose Level 97, Calcium Level 8.5 10/23/17 11:55: Vancomycin Level Trough 6.4 Height (Feet): 5 Weight (Pounds): 100 General Appearance: alert EENT: normal ENT inspection Neck: normal alignment Cardiovascular: normal peripheral pulses, normal rate, regular rhythm Respiratory/Chest: chest wall non-tender, lungs clear, normal breath sounds Abdomen: normal bowel sounds, non tender, soft Extremities: normal inspection Edema: no edema noted Arm (L), no edema noted Arm (R), no edema noted Leg (L), no edema noted Leg (R), no edema noted Pedal (L), no edema noted Pedal (R), no edema noted Generalized Neurologic: responsive, motor weakness Skin: normal pigmentation, warm/dry Rigo Melchor DO Oct 23, 2017 14:54
[2017-10-23] MEDS ORDERED: Tubing IV Secondary IV ONE ×2 (15:12)
--- NOTE | 2017-10-26 08:04 | Discharge Summary ---
Discharge Summary Discharge Summary _ DATE OF ADMISSION: 10/21/2017 DATE OF DISCHARGE: 10/23/2017 REASON FOR ADMISSION: 22 years old male with past medical history of severe scoliosis, fibromyalgia , chronic testicular pain, hypertension, psychosis, presented to emergency department for evaluation. Patient reported pain and swelling in the left foot. Symptoms were present for years but were getting worse now . He denied fever and chills , he denied chest pain or shortness of breath. He denied hearing voices ,he denied any suicidal or homicidal ideation. Upon evaluation patient had leukocytosis at WBC 12.1 Vital signs reveal tachycardia, no fever. ECG revealed NSR, no acute ischemic changes. Mild anemia with hemoglobin 10.8 hematocrit 32.5. X-ray of the left foot revealed no evidence of acute fracture, but showed severe arthritis and soft tissue swelling.. Urine toxicology screen was positive for marijuana. In emergency department wound culture was obtained , patient started on broad- spectrum antibiotic. Patient admitted for further management with diagnosis of cellulitis left food, severe scoliosis, inability to ambulate, psychosis. CONSULTANTS: pulmonary Dr. Sanz ID specialist Dr. Helms urologist Dr. [id number] HOSPITAL COURSE: Patient admitted. Patient started on empiric antibiotics. ID specialist closely followed. Wound culture revealed Staph aureus. Patient also had superficial ulcer on the left food. Wound care provided as per protocol. Venous duplex bilateral lower extremity was negative. Urology consult was requested due to chronic testicular pain. According to urologist ,patient had chronic orchialgia and possibly intermittent epididymitis . Patient was already on antibiotics. No scrotal or testicular mass, hernia, hydrocele or abscess were noted. Patient was reassured regarding the findings. Patient was working with physical occupational therapists. Patient was able to ambulate safely with cane. Fall precautions maintained. Nutritional recommendations implemented in plan of care. Pain management was addressed. DVT prophylaxis provided. Blood pressure was closely monitored and remained stable. Bowel regimen instituted. psychotherapist social worker met with patient. Patient reported to be independent with activities of daily living and was going home with his mother. Patient was able to ambulate with cane safely as per physical therapist . Leukocytosis resolved ,afebrile ,pain controlled. Patient was stable for discharge FINAL DIAGNOSES: Cellulitis left food Superficial ulcer left food Severe scoliosis Gravely disabled Psychosis Fibromyalgia Spina bifida Chronic orchialgia Possibly intermittent epididymitis Hypertension DISCHARGE MEDICATIONS: List of medications provided to patient. DISCHARGE INSTRUCTIONS: Patient was discharged home. Follow up with primary care provider in one week. I have been assigned to dictate discharge summary for this account. I was not involved in the patient's management. Valery Melgar NP Oct 26, 2017 08:04
== END 2017-10-23 15:13 | disposition home or self-care (01) | DRG 383 ==
LOC: EDBD 05:58 → EMR 06:30 → EDBD 06:30 → 4W 07:36 → EDBEDREQ 11:01
DX: L03.116 Cellulitis of left lower limb (principal); D64.9 Anemia, unspecified; I10 Essential (primary) hypertension; M79.7 Fibromyalgia; Q05.9 Spina bifida, unspecified; Z88.0 Allergy status to penicillin; Z91.040 Latex allergy status; R62.7 Adult failure to thrive; G89.29 Other chronic pain; N50.819 Testicular pain, unspecified; N50.82 Scrotal pain; F29 Unspecified psychosis not due to a substance or known physiological condition; R26.2 Difficulty in walking, not elsewhere classified; N45.1 Epididymitis
CPT/HCPCS: 36415; 80048; 80053; 80202; 80307; 80329; 83605; 85025; 87040; 87070; 87181; 87205; 93925; 93970; 94664; 99285; J2405